=== PATIENT | female | born 1965 | race American Indian/Alaskan Native ===

== ENCOUNTER 2017-05-04 13:05 | Outpatient (CLI) | payer BC ==
--- NOTE | 2017-05-04 14:42 | Mammography Report ---
BILATERAL MAMMOGRAM: FINDINGS: The breast tissue is heterogeneously dense, which could obscure detection of small masses (approximately 50%-75% glandular). No mass, distortion, suspicious calcification, or skin change is seen. No significant change compared to exams dating back to 2015. CAD was utilized. IMPRESSION: Negative mammogram. There is no mammographic evidence of malignancy. RECOMMENDATION: Follow-up per ACS guidelines. BI-RADS CATEGORY: 1 = Negative ACR BI-RADS MAMMOGRAPHIC CODES: 0 = Needs additional imaging evaluation; 1 = Negative; 2 = Benign; 3 = Probably benign; 4 = Suspicious; 5 = Malignant; 6 = Known biopsy-proven malignancy COMMENT: 1. Dense breast tissue, i.e., adenosis, fibrocystic changes, etc., may obscure an underlying neoplasm. 2. Approximately 10% of cancers are not detected with mammography. 3. A negative mammography report should not delay biopsy if a clinically suspicious mass is present. COMMENT: Patient follow-up letters are generated in [employer].
== END 2017-05-04 13:06 | disposition home or self-care (01) ==
LOC: SPVWC 13:05
PROVIDERS: ATTEND Family Medicine
DX: Z12.31 Encounter for screening mammogram for malignant neoplasm of breast (principal)
CPT/HCPCS: 77067; G0202

== ENCOUNTER 2018-01-16 11:15 | Emergency (ER) | payer BC ==
[2018-01-16 11:50] VITALS: BP 101/83
[2018-01-16 12:21] LABS: Basophils % (Auto) 0.3 % (0.0-1.8); Eosinophils # (Auto) 0.2 K/mm3 (0.0-0.4); Eosinophils % (Auto) 1.6 % (0.0-4.3); Hematocrit 38.4 % (30.3-42.9); Hemoglobin 12.7 gm/dl (10.1-14.3); Lymphocytes # (Auto) 2.1 K/mm3 (1.2-5.4); Lymphocytes % (Auto) 21.6 % (13.4-35.0); Mean Corpuscular HGB Conc 33 % (30-34); Mean Corpuscular Hemoglobin 29 pg (28-32); Mean Corpuscular Volume 86 fl (79-97); Monocytes # (Auto) 0.6 K/mm3 (0.0-0.8); Monocytes % (Auto) 6.2 % (0.0-7.3); Platelet Count 277 K/mm3 (140-440); Red Blood Count 4.45 M/mm3 (3.65-5.03)
[2018-01-16 15:19] LABS: Bilirubin,Urine NEG (Negative); Blood,Urine LG (Negative); Color,Urine Red (Yellow); Urobilinogen,Urine < 2.0 mg/dL (<2.0)
[2018-01-16 15:22] LABS: RBC,Urine > 182.0 /HPF (0.0-6.0)
--- NOTE | 2018-01-16 15:28 | Emergency Department Report ---
Blank Doc - Documentation Documentation: Patient is a 52-year-old female who is presenting with heavy vaginal bleeding. Patient is on headache menstrual cycle since 2016. Patient states that the bleeding started 4 days ago. It yesterday she thought that it had subsided however she had a gush of blood with large amount of blood come out before arrival. Patient states she has some mild crampiness in the suprapubic and right lower quadrant area. Patient has no dizziness nausea vomiting fevers or chills at this time. Laboratory studies are within normal limits except for hematuria is present. Patient will be sent for ultrasound to rule out structural abnormalities causing increased bleeding.
--- NOTE | 2018-01-16 17:49 | Emergency Department Report ---
ED Female HPI - General Chief complaint: Vaginal Bleeding Stated complaint: VAG BLEEDING Time Seen by Provider: 01/16/18 15:00 Source: patient Mode of arrival: Ambulatory Limitations: No Limitations - History of Present Illness Initial comments: This is a A.A. female that presents with vaginal bleeding after menopause for 2 days. Reports menses stopped for 1 year, 07/2017 completes 1 year. Sunday night she started cramping and thought it was fibroids enlarged and took motrin. Sunday morning she noticed spotting and called her [facility] Dr. Higgins at [facility] they where not able to see her because her insurance changed. She went to [facility] Sunday and they did a pelvic exam and ordered pelvic US for 01/28/2018. She didn't want to wait and decided to come in for evaluation. This morning she saw dark red blood and felt like a flood gate opened but no clots. Denies nausea, vomiting, fever, chills, dizziness, chest pain, and SOB. MD Complaint: vaginal bleeding -: days(s) (2) Location: LLQ Radiation: suprapubic Severity: moderate Quality: cramping Consistency: intermittent Improves with: none Worsens with: none Are you Now?: No Last Menstrual Period: 07/25/16 EDC: 05/01/17 Associated Symptoms: denies other symptoms - Related Data Sexually active: Yes Allergies Allergy/AdvReac Type Severity Reaction Status Date / Time No Known Allergies Allergy Unverified 01/16/18 11:43 ED Review of Systems ROS: Stated complaint: VAG BLEEDING Other details as noted in HPI Constitutional: denies: chills, fever Respiratory: denies: cough, shortness of breath, wheezing Cardiovascular: denies: chest pain, palpitations, syncope Gastrointestinal: abdominal pain (cramping). denies: nausea, diarrhea Genitourinary: abnormal menses (vaginal bleeding) Musculoskeletal: denies: back pain, joint swelling, arthralgia Psychiatric: denies: anxiety, depression ED Past Medical Hx - Past Medical History Previous Medical History?: Yes Additional medical history: high cholesterol, high triglycerides, Uterine fibroids - Surgical History Past Surgical History?: Yes Additional Surgical History: left leg, thyroidectomy, Left neck thyroid biopsy - Social History Smoking Status: Never Smoker Substance Use Type: Alcohol ED Physical Exam - General Limitations: No Limitations General appearance: alert, in no apparent distress - Respiratory Respiratory exam: Present: normal lung sounds bilaterally. Absent: respiratory distress, wheezes, rales, rhonchi, stridor - Cardiovascular Cardiovascular Exam: Present: regular rate, normal rhythm, normal heart sounds. Absent: systolic murmur, diastolic murmur, rubs, gallop - GI/Abdominal GI/Abdominal exam: Present: soft, normal bowel sounds. Absent: distended, tenderness, guarding, rebound, rigid - Back Exam Back exam: Present: normal inspection, full ROM. Absent: CVA tenderness (R), CVA tenderness (L) - Neurological Exam Neurological exam: Present: alert, oriented X3, normal gait - Psychiatric Psychiatric exam: Present: normal affect, normal mood ED Course Vital Signs 01/16/18 11:43 Temperature 98.8 F Pulse Rate 84 Respiratory 20 Rate Blood Pressure 101/83 O2 Sat by Pulse 99 Oximetry ED Medical Decision Making - Lab Data Result diagrams: 01/16/18 11:59 - Radiology Data Radiology results: report reviewed Transvaginal and pelvis US: Abnormally markedly thickened endometrial stripe measuring up to 2 centimeters. In this patient's age group consider endometrial hyperplasia versus endometrial carcinoma. A large polyp could present this manner as well. Multiple uterine fibroids are visualized as described. Ovaries are unremarkable. - Medical Decision Making This is a 52 y.o. female that presents with abdominal cramping and vaginal bleeding for 2 days post menopause. She was 1 year without menses 07/2017. F/U with [facility] Sunday, had pelvic exam and scheduled pelvic US 01/28/18. Vaginal bleeding started this morning with gush. Patient was examined by me and Carlos Ferrari. Obtained HCG quant, CBC, & UA. Review labs. Obtained transvaginal and pelvic US: Abnormally markedly thickened endometrial stripe measuring up to 2 centimeters. In this patient's age group consider endometrial hyperplasia versus endometrial carcinoma. A large polyp could present this manner as well. Multiple uterine fibroids are visualized as described. Ovaries are unremarkable. Discussed results with patient and advised to f/u with [facility] and agreed to plan. No further questions noted by the patient. Discharged home in stable condition. Critical care attestation.: If time is entered above; I have spent that time in minutes in the direct care of this critically ill patient, excluding procedure time. ED Disposition Clinical Impression: Vaginal bleeding, Endometrial hyperplasia Fibroids Qualifiers: Uterine leiomyoma location: intramural and submucous Qualified Code(s): D25.1 - Intramural leiomyoma of uterus; D25.0 - Submucous leiomyoma of uterus Disposition: TO HOME OR SELFCARE Is pt being admited?: No Does the pt Need Aspirin: No Condition: Stable Instructions: Uterine Fibroids (ED) Additional Instructions: Follow up with [facility] Dr. Kelly at [facility]. Return to ER if increased vaginal bleeding, passing large clots, abdominal pain , and fever. Referrals: [facility] [Provider Group] - 3-5 Days [facility] [Provider Group] - 3-5 Days Forms: Work/School Release Form(ED) Time of Disposition: 18:55 Print Language: AMHARIC
--- NOTE | 2018-01-16 18:21 | Ultrasound Report ---
FINAL REPORT PROCEDURE: Transvaginal pelvic ultrasound. TECHNIQUE: Real-time transvaginal sonography in multiple planes of the pelvis was performed with image documentation. This examination was performed without Doppler. Vascular abnormalities, including ovarian torsion, will not be detectable without Doppler evaluation. CPT 60246 HISTORY: heavy vag bleed after menopause COMPARISON: Transabdominal pelvic ultrasound also performed today. FINDINGS: This report was generated using images from both the transabdominal and the transvaginal scan both of which were performed today. The uterus measures 11.2 x 7.1 x 7.1 centimeter. Hypoechoic nodules are seen in the uterine myometrium to the left of midline. Three appear to be present measuring 2.3, 2.2 and 2.8 centimeter each in greatest diameter. There is a nodule seen in the anterior aspect of the fundus of the uterus measuring 3.7 centimeters greatest diameter. These appear to represent multiple uterine fibroids. The endometrial stripe appears significantly thickened measuring up to 2 centimeters. No fluid is seen in the endometrial canal. No free fluid is seen in the cul-de-sac. Right and left ovaries are on. No abnormal cystic or solid masses are seen in the adnexa. The right ovary measures 2.1 x 0.8 x 2.2 centimeter. The left ovary measures 2.8 x 1.1 x 2.7 centimeters. IMPRESSION: Abnormally markedly thickened endometrial stripe measuring up to 2 centimeters. In this patient's age group consider endometrial hyperplasia versus endometrial carcinoma. A large polyp could present this manner as well. Multiple uterine fibroids are visualized as described. Ovaries are unremarkable.
--- NOTE | 2018-01-16 18:23 | Ultrasound Report ---
FINAL REPORT PROCEDURE: US PELVIC COMPLETE TECHNIQUE: Real-time transabdominal sonography in multiple planes of pelvis was performed with image documentation. This examination was performed without Doppler. Vascular abnormalities, including ovarian torsion, will not be detectable without Doppler evaluation. CPT 22999 HISTORY: heavy vag bleed after menopause COMPARISON: Transvaginal pelvic ultrasound also performed today. FINDINGS: This report was generated using images from both the transabdominal and the transvaginal scan both of which were performed today. The uterus measures 11.2 x 7.1 x 7.1 centimeter. Hypoechoic nodules are seen in the uterine myometrium to the left of midline. Three appear to be present measuring 2.3, 2.2 and 2.8 centimeter each in greatest diameter. There is a nodule seen in the anterior aspect of the fundus of the uterus measuring 3.7 centimeters greatest diameter. These appear to represent multiple uterine fibroids. The endometrial stripe appears significantly thickened measuring up to 2 centimeters. No fluid is seen in the endometrial canal. No free fluid is seen in the cul-de-sac. Right and left ovaries are on. No abnormal cystic or solid masses are seen in the adnexa. The right ovary measures 2.1 x 0.8 x 2.2 centimeter. The left ovary measures 2.8 x 1.1 x 2.7 centimeters. IMPRESSION: Abnormally markedly thickened endometrial stripe measuring up to 2 centimeters. In this patient's age group consider endometrial hyperplasia versus endometrial carcinoma. A large polyp could present this manner as well. Multiple uterine fibroids are visualized as described. Ovaries are unremarkable.
== END 2018-01-16 19:05 | disposition home or self-care (01) ==
LOC: ED 11:15
DX: D25.1 Intramural leiomyoma of uterus (principal); D25.0 Submucous leiomyoma of uterus; N85.00 Endometrial hyperplasia, unspecified
CPT/HCPCS: 36415; 76830; 76856; 81001; 84702; 85025; 86850; 86900; 86901

== ENCOUNTER 2018-05-10 10:31 | Outpatient (CLI) | payer BC ==
--- NOTE | 2018-05-10 16:41 | Mammography Report ---
BILATERAL DIGITAL SCREENING MAMMOGRAM with CAD: 05/10/18 10:31:00 CLINICAL: Routine screening. COMPARISON:05/04/17 FINDINGS: The breasts are heterogeneously dense, which may obscure small masses. No mass, architectural distortion or suspicious calcifications. IMPRESSION: No mammographic evidence of malignancy. BI-RADS CATEGORY: 2 - - Benign RECOMMENDATION: Routine mammographic screening in one year. COMMENT: Patient follow-up letters are generated by our [employer] application.
== END 2018-05-10 10:32 | disposition home or self-care (01) ==
LOC: SPVWC 10:31
PROVIDERS: ATTEND Family Medicine
DX: Z12.31 Encounter for screening mammogram for malignant neoplasm of breast (principal)
CPT/HCPCS: 77067

== ENCOUNTER 2019-05-12 10:35 | Outpatient (CLI) | payer BC ==
--- NOTE | 2019-05-12 13:25 | Mammography Report ---
BILATERAL DIGITAL SCREENING MAMMOGRAM WITH CAD INDICATION: Routine screening mammography. TECHNIQUE: Digital bilateral 2D mammography was obtained in the craniocaudal and mediolateral obliq ue projections. This examination was interpreted with the benefit of Computer-Aided Detection analysi s. COMPARISON: 05/02/2016 FINDINGS: Breast Density: The breasts are heterogeneously dense, which may obscure small masses. No mass, architectural distortion or suspicious calcifications. IMPRESSION:No mammographic evidence of malignancy. BI-RADS Category 2: Benign. No mammographic evidence of malignancy. Recommend routine screening ma mmography in one year. A "normal" or negative report should not discourage follow up or biopsy of a clinically significant f inding. A written summary of these findings will be mailed to the patient. The patient will be entered into a mammography reporting system which will generate a reminder letter for the patient's next appointmen t at the appropriate interval. The [employer] recommends yearly mammograms starting at age 40 and continuing as l siria as a woman is in good health. Breast MRI is recommended for women with an approximate 20-25% or greater lifetime risk of breast cancer, including women with a strong family history of breast or ova rainer cancer or who have been treated for Hodgkin's disease. Signer Name: Lev Sen MD Signed: 05/12/2019 1:20 PM Workstation Name: [id number]
== END 2019-05-12 10:36 | disposition home or self-care (01) ==
LOC: SPVWC 10:35
PROVIDERS: ATTEND Family Medicine
DX: Z12.31 Encounter for screening mammogram for malignant neoplasm of breast (principal)
CPT/HCPCS: 77067

== ENCOUNTER 2021-05-10 11:42 | Outpatient (CLI) | payer BC ==
--- NOTE | 2021-05-10 12:41 | Mammography Report ---
BILATERAL DIGITAL SCREENING MAMMOGRAM WITH CAD HISTORY: Screening mammogram. TECHNIQUE: Routine digital mammographic imaging performed. This examination was interpreted with hemal dawn benefit of Computer-aided Detection analysis. COMPARISON: 04/27/2020, 05/12/2019, 05/10/2018, 05/02/2016. FINDINGS: Breast Density: heterogeneously dense breast parenchymal pattern which somewhat lessens the sensitivi ty of the evaluation. Digital CC and MLO views demonstrate a left central breast asymmetry which is seen on the cc view onl y. No suspicious findings within the right breast. IMPRESSION: Left central breast asymmetry for which additional mammographic views and possible ultrasound is syd mmended. BIRADS 0-Incomplete: Needs additional imaging evaluation NOTE: WE WILL RECALL THE PATIENT FOR THIS ADDITIONAL EVALUATION. FURTHER INFORMATION: According to the [employer], yearly mammograms are recommend ed starting at age 40 and continuing as long as a woman is in good health. Clinical Breast Exams shou ld be part of a periodic health exam-about every 3 years for women in their 20s and 30s and every yea r for women 40 and over. Breast self exam is an option for women starting in their 20s. Any breast ch jez noted on a breast self exam should be reported promptly to the patient's healthcare provider. Br east MRI is recommended for women with an approximately 20-25% or greater lifetime risk of breast can cer, including women with a strong family history of breast or ovarian cancer and women who have been treated for Hodgkin's disease. A negative Mammography report should not discourage follow up or biopsy of a clinically significant f inding and/or abnormality. Dense breast tissue may obscure small neoplasms. The patient will be entered into a reminder system with a target due date for the next screening mamm ogram. Signer Name: Herbert Rios MD Signed: 05/10/2021 12:35 PM Workstation Name: [id number]
== END 2021-05-10 11:43 | disposition home or self-care (01) ==
LOC: SPVWC 11:42
PROVIDERS: ATTEND Family Medicine
DX: Z12.31 Encounter for screening mammogram for malignant neoplasm of breast (principal)
CPT/HCPCS: 77067

== ENCOUNTER 2021-06-08 09:48 | Outpatient (CLI) | payer BC ==
--- NOTE | 2021-06-08 10:55 | Mammography Report ---
DIGITAL DIAGNOSTIC MAMMOGRAM WITH CAD , 06/08/2021 CLINICAL INFORMATION / INDICATION: Abnormal screening mammogram. Screening recall of the left breast for asymmetry TECHNIQUE: Digital left mammographic imaging was performed. This examination was interpreted with the benefit of Computer-aided Detection analysis. COMPARISON: Screening mammogram, 05/10/2021, 04/27/2020 and 05/12/2019 FINDINGS: Breast Density: The breasts are heterogeneously dense, which may obscure small masses. Spot compression views demonstrate that the asymmetry in the central aspect of the left breast resolv es completely. The appearance of the breast parenchyma is unchanged when compared to multiple prior m ammograms. IMPRESSION: No mammographic evidence of malignancy. The asymmetry in question in the left breast was likely related to overlapping fibroglandular tissue. Follow up recommendation: Routine yearly BI-RADS Category 1: Negative. A "normal" or negative report should not discourage follow up or biopsy of a clinically significant f inding. A written summary of these findings will be mailed to the patient. The patient will be entered into a mammography reporting system which will generate a reminder letter for the patient's next appointmen t at the appropriate interval. According to the [employer], yearly mammograms are recommended starting at age 40 and continuing as long as a woman is in good health. Breast MRI is recommended for women with an brian roximately 20-25% or greater lifetime risk of breast cancer, including women with a strong family his tory of breast or ovarian cancer and women who have been treated for Hodgkin's disease. Signer Name: Elza Zendejas MD Signed: 06/08/2021 10:51 AM Workstation Name: [id number]
== END 2021-06-08 09:49 | disposition home or self-care (01) ==
LOC: SPVWC 09:48
PROVIDERS: ATTEND Family Medicine
DX: R92.8 Other abnormal and inconclusive findings on diagnostic imaging of breast (principal)